=== PATIENT | female | born 2005 | race Caucasian/White ===

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

== ENCOUNTER 2025-01-01 21:16 | Emergency (ER) | payer BC, MEDICAID ==
[2025-01-01] MEDS: ALPRAZolam 0.25 MG Tab PO ONE (22:44)
[2025-01-01] MEDS: lamoTRIgine 100 MG Tab PO ONE (22:44)
== END 2025-01-01 23:21 | disposition home or self-care (01) ==
LOC: DL.ED 21:16
DX: F32.A Depression, unspecified (principal)
CPT/HCPCS: 99283; A9270-GY